=== PATIENT | female | born 1980 | race African-American/Black ===

== ENCOUNTER 2020-11-23 05:18 | Inpatient (IN) | payer OTHER ==
[~2020-11-23] VITALS: Ht 170.2 cm; Wt 128.2 kg
[2020-11-23 04:30] VITALS: BP 119/93
[2020-11-23] MEDS ORDERED: ONDANSETRON PF 4 MG/2 ML VIAL. IVP PRN (06:00)
[2020-11-23] MEDS ORDERED: HEPARIN for IV BOLUS 10,000 UNIT/10 ML VIAL. IV PRN ×2 (06:00)
[2020-11-23] MEDS ORDERED: fentaNYL PF VIAL 100 MCG/2 ML VIAL IVP PRN (06:00)
[2020-11-23] MEDS ORDERED: ANTI-COAG MONITOR BY PHARMACY. MC PRN (06:15)
[2020-11-23] MEDS: HEPARIN 25,000UTS/250ML PREMIX 250 ML IV PRN ×2 (06:17→17:53)
[2020-11-23 06:54] VITALS: BP 134/68
[2020-11-23 11:00] VITALS: BP 122/99
--- NOTE | 2020-11-23 14:12 | CONS ---
DATE OF CONSULTATION: 11/23/2020 PULMONARY CONSULTATION ATTENDING PHYSICIAN: Dr. Grey REASON FOR CONSULTATION: Pulmonary embolism. HISTORY OF PRESENT ILLNESS: The patient is a 40-year-old morbidly obese female who has no significant pulmonary history. The patient states about 5 days ago, she started to have increasing shortness of breath. She works at [employer]. She is active on her feet. She does have obesity with a BMI of 42. The patient started to have some chest pressure as well. Her dyspnea got worse. As a result, she was seen in the hospital and a CT angiogram was performed. I reviewed the CT angiogram. She has extensive bilateral pulmonary embolism with sparing of the main pulmonary arteries. She has evidence of right ventricular strain as well. No significant pleural effusion or pulmonary infarction observed. The patient states she has been active at work. She is not on any control pills. She has no family history of thromboembolic disorder. The patient has no history of any miscarriages. This is the first time she has a thromboembolic episode. She said she has some problem with her knees, but denied any calf tenderness. PAST MEDICAL HISTORY: No significant tobacco history. No significant pulmonary history. PAST SURGICAL HISTORY: None recently. ALLERGIES: None. MEDICATIONS: Reviewed including heparin per protocol. REVIEW OF SYSTEMS: A 12-point system was obtained. Pertinent positives discussed in my present illness, otherwise, noncontributory. All systems that were negative were reviewed as well. FAMILY HISTORY: Noncontributory to lungs. No family history of thromboembolic disease. SOCIAL HISTORY: non smoker PHYSICAL EXAMINATION: VITAL SIGNS: Reviewed. Pulse ox 95% on room air. NECK: Supple. LUNGS: Clear. CARDIOVASCULAR: With a regular rate. ABDOMEN: Soft, obese. EXTREMITIES: With no pitting edema. LABORATORY DATA: Reviewed. Troponin 0.052. Other labs are pending. A CT angiogram was reviewed as discussed above. IMPRESSION: 1. Acute pulmonary embolism in a patient who has no obvious risk factors except obesity. She is otherwise active on her feet while working at [employer]. She has no family history of thromboembolic disease. She is not on any hormonal replacement therapy. She has no miscarriages. No history of any trauma. We will need venous Dopplers of lower extremities to rule out deep vein thrombosis. We will also need hypercoagulable panel. 2. Evidence of right ventricular strain. She is hemodynamically stable. We will monitor closely on heparin. 3. Underlying morbid obesity. Suspicion for obstructive sleep apnea. RECOMMENDATIONS: 1. Continue with heparin per protocol. 2. We will initiate Eliquis in next 24-48 hours. 3. Obtain venous Dopplers of lower extremities. 4. Obtain echocardiogram. 5. Hypercoagulable panel as an outpatient. 6. Minimum 3-6 months of anticoagulation. She needs to lose weight. The total duration of anticoagulation therapy depending on additional workup results. 7. Discussed with RN. We will follow along with you. 8. Consider sleep study as outpt. LAUREL DR: Fanny TID: [id number] FLAQUITA
--- NOTE | 2020-11-23 14:44 | NUR ---
SS following for discharge planning. SS reviewed pt chart and discussed with pt RN. Pt is from home with spouse and is currently on room air. Pt on Heparin drip. ECHO today. Hematology and Pulmonology consulted. SS will continue to follow for discharge planning.
--- NOTE | 2020-11-23 14:47 | HP ---
ADMIT DATE: 11/23/2020 HISTORY OF PRESENT ILLNESS: The patient is a 40-year-old female patient who presented to the emergency room with a complaint of chest pain and shortness of breath that began about 5 days ago and has continued to worsen since then. The patient stated that it became unbearable early this morning. She cannot walk more than five steps without shortness of breath and chest pain. She described chest pain as chest tightness on the right side of her chest that occasionally radiates to the right upper quadrant of her abdomen, does not radiate anywhere else. She has not taken anything for pain. She states that she is sitting or lying down with pillows behind her back is the best help to reduce the pain in her chest and shortness of breath. She has no pertinent medical history and does not follow with any primary care physician. She was never diagnosed with any medical problems, never had any surgeries for and she was evaluated in the emergency room with lab work and imaging studies. Her D-dimer was 4.68. She has also anemia, normochromic, normocytic and her chemistry was essentially unremarkable. She has also beta natriuretic peptide was high at 1225. First set of cardiac enzymes showed troponin to be slightly elevated at 0.063 and the patient underwent a CT angio of the chest, which basically showed extensive bilateral pulmonary emboli, right-sided heart chamber enlargement with mild flattening of the ventricular system suggesting right heart strain pattern. Lungs are clear, otherwise. The patient was transferred to [facility] and was started on heparin drip. PAST MEDICAL HISTORY: Unremarkable. PAST SURGICAL HISTORY: Unremarkable. MEDICATIONS: She has no medication prescription. She takes ibuprofen occasionally. ALLERGIES: She has no known drug allergies. FAMILY HISTORY: She has 3 brothers and 1 sister, all older. None of them was diagnosed with any clot, although she said that she does not really keep in touch with them. Her parents are both alive in their 60s. Her mother had a CVA and hypertension. SOCIAL HISTORY: She is , has two sons and three daughters. She is an ex-smoker. She used to smoke when she was a teenager, but she has not smoked for a long time. She drinks alcohol occasionally. Does not use any drugs. She works at [employer]. Mostly, on her feet and walking around. She denied any recent travel for long distances or flying for a long time. PHYSICAL EXAMINATION: GENERAL: On arrival to the emergency room, the patient looked well and was clearly in no apparent respiratory distress. VITAL SIGNS: Her heart rate was 121, blood pressure was 153/104, temperature was 98.2, respiratory rate was 18 and oxygen saturation was 95% on room air. HEAD, EYES, EARS, NOSE AND THROAT: Normocephalic, atraumatic. NECK: Supple. HEART: Showed normal first and second heart sounds, no gallop, rub or murmur. CHEST: Clear to auscultation, no crepitation or rhonchi. ABDOMEN: Distended, soft, nontender. NEUROLOGIC: She was awake, alert, responding appropriately. All cranial nerves intact. She moves extremities without difficulty. LABORATORY DATA: Her lab work showed serum sodium 138, potassium 3.8, chloride 103, bicarbonate 24, anion gap of 11, BUN 6, creatinine 0.9. Estimated GFR was 84 mL per minute. Her glucose 138, calcium was 8.8, magnesium was 1.7. Total bilirubin, AST, ALT, alkaline phosphatase were normal. Her first set of cardiac enzymes showed troponin to be 0.063. Beta natriuretic peptide was 1225. Total protein 7.6, albumin 3, lipase was 64. White cell count was 8100, hemoglobin 12, hematocrit 36, MCV 89 and platelet count of 331,000 with normal manual differential. Urinalysis essentially unremarkable. Her test was negative. A CT angio of the chest showed that the patient has extensive bilateral pulmonary emboli, it is almost occlusive described as subtotally occlusive filling defects at the distal right main pulmonary artery filling the upper lobe, middle lobe and basilar segmental branches. There is also subtotally occlusive filling defects in the main left lower lobe and lingular branches with partially occlusive filling defects in the left upper lobe segmental branches. The heart size is mildly enlarged. There is mild displacement of the ventricular septum with right-sided chamber enlargement, suggesting strain pattern. No pericardial effusion. No mediastinal or hilar or axillary lymphadenopathy. Thyroid gland was unremarkable. Total airways are patent. Mild diffuse bronchial wall thickening. No consolidation, pleural effusion, or pneumothorax. Limited images of the upper abdomen are unremarkable with no acute bony abnormality and multilevel spondylosis. The patient was given IV fluid, a liter of normal saline and Lovenox as well as fentanyl and was transferred to [facility] to consult the funeral home location manager, perhaps a manager entry also. [facility] DR: Prudencio TID: [id number]
--- NOTE | 2020-11-23 15:02 | PDOC2 ---
CONSULT Date of Consult Date of Consult DATE: 11/23/20 TIME: 14:58 Reason for Consult Reason for Consult: Pulmonary embolus Identification/Chief Complaint Chief Complaint Chest pain Source Source: Chart review, Patient History of Present Illness Reason for Visit: Patient is a 40-year-old woman who was transferred from [facility] with bilateral extensive PE with right heart strain. Presented with 5 days history of increasing chest tightness and chest pain. Questioning her she did not have any long travels or history of injuries. She did have some bilateral leg cramps and pain for about a month and a half. No personal or family history of blood clots. Mother developed breast cancer at unknown age. The patient does not smoke. She drinks alcohol occasionally and does not use illicit drugs. She has been started on IV heparin. Current Medications Current Medications Current Medications Heparin Sodium/ Dextrose 250 ml @ 0 mls/hr CONT PRN IV PER PROTOCOL Last administered on 11/23/20at 06:17; Start 11/23/20 at 06:00 Heparin Sodium (Porcine) (Heparin Sodium) 3,700 unit PRN Q6HRS PRN IV FOR UFH LEVEL LESS THAN 0.2; Start 11/23/20 at 06:00 Heparin Sodium (Porcine) (Heparin Sodium) 1,850 unit PRN Q6HRS PRN IV FOR UFH LEVEL 0.2 - 0.29; Start 11/23/20 at 06:00 Ondansetron HCl (Zofran) 4 mg PRN Q6HRS PRN IVP NAUSEA/VOMITING 1ST CHOICE; Start 11/23/20 at 06:00 Fentanyl Citrate (Fentanyl 2ml Vial) 50 mcg PRN Q2HR PRN IVP SEVERE PAIN 7-10; Start 11/23/20 at 06:00 Info (Anti-Coagulation Monitoring By Pharmacy) 1 each PRN DAILY PRN MC SEE COMMENTS Last administered on 11/23/20at 06:11; Start 11/23/20 at 06:15 Active Scripts Active Reported No Known Medications Prior To Admisstion (Info) Each 1 Each MC 1X Allergies Allergies: Coded Allergies: No Known Drug Allergies (Unverified , 11/23/20) ROS Respiratory: YES: Pleuritic Pain Vitals VITALS Vital Signs Date Time Temp Pulse Resp B/P (MAP) Pulse Ox O2 Delivery O2 Flow Rate FiO2 11/23/20 11:00 98.1 104 29 122/99 (107) 100 Room Air 98.1 Labs Labs Laboratory Tests Test 11/23/20 07:45 11/23/20 10:15 11/23/20 12:05 Troponin I Quantitative 0.052 ng/mL (0.000-0.055) 0.040 ng/mL (0.000-0.055) Heparin Anti-Xa Act, Unfractionated 0.51 IU/mL (0.30-0.70) Laboratory Tests Test 11/23/20 07:45 11/23/20 10:15 11/23/20 12:05 Troponin I Quantitative 0.052 ng/mL (0.000-0.055) 0.040 ng/mL (0.000-0.055) Heparin Anti-Xa Act, Unfractionated 0.51 IU/mL (0.30-0.70) Assessment/Plan Assessment/Plan 1-bilateral unprovoked pulmonary emboli with right heart strain Plan: 1- Continue IV heparin 2-we will check lupus anticoagulant and antiphospholipid antibody panel 3-CT abdomen pelvis to look for occult malignancy 4-connective tissue panel including JOSEPH rheumatoid factor In the absence of malignancy, and if the antiphospholipid panel is negative, the patient can be stabilized and discharged on a DOAC for at least 6 month. More comprehensive thrombophilia work-up to be carried after 6 months of full dose anticoagulation. If the antiphospholipid panel is positive, and although it needs to be confirmed 12 weeks later, warfarin will be the best choice to send the patient home on LYNDA JONES MD Nov 23, 2020 15:02
[2020-11-23 15:33] VITALS: BP 131/79
--- NOTE | 2020-11-23 15:48 | RAD ---
US BILATERAL LOWEREXTREMITY VENOUS DOPPLER History: Reason: PE, LEG PAIN / Spl. Instructions: / History: Comparison: None. Discussion: Multiple longitudinal and transverse high resolution real-time images of the venous system of [facility] lower extremity were obtained with color and Doppler sampling. The common femoral, superficial fem oral, popliteal and proximal calf veins are all patent and demonstrate normal flow and compressibilit y. Normal respiratory phasicity and augmentation is present. Impression: 1. No evidence of deep vein thrombosis. Electronically signed by: Marcio Ryan DO (11/23/2020 3:46 PM) [id number]
[2020-11-23 19:02] VITALS: BP 116/75
[2020-11-23 22:10] VITALS: BP 109/72
[2020-11-24 03:02] VITALS: BP 112/74
[2020-11-24 06:23] VITALS: BP 118/83
[2020-11-24] MEDS: HEPARIN 25,000UTS/250ML PREMIX 250 ML IV PRN (06:50)
[2020-11-24] MEDS ORDERED: IOHEXOL 300 MG/ML 100ML VIAL. IV ONE (08:00)
[2020-11-24] MEDS ORDERED: IOHEXOL 240 MG/ML 50ML VIAL. PO ONE (08:00)
[2020-11-24] MEDS ORDERED: CONTRAST GIVEN. MC PRN (08:00)
--- NOTE | 2020-11-24 10:26 | RAD ---
CT ABDOMEN+PELVIS W History: Unprovoked pulmonary embolism, evaluate for malignancy. Comparison: CT chest 11/23/2020. Technique: CT of the abdomen and pelvis with oral and intravenous contrast. Findings: Lung bases: Small right pleural effusion. No airspace consolidation General abdomen: No ascites. No free air. Liver : Normal in size and attenuation. No masses seen. Gallbladder/Biliary Tree: Abnormal appearance of the gallbladder, likely gallbladder wall thickening and vicarious excretion of contrast into the lumen. No intrahepatic or extrahepatic biliary ductal di latation. Pancreas: Normal. Spleen: Normal in size and attenuation. Adrenal glands: Normal. Kidneys: No hydronephrosis or hydroureter. 1.9 cm anterior interpolar right kidney hypodensity measur ing 22 Hounsfield units, greater than that of the cyst. Gastrointestinal: Small hiatal hernia. Unremarkable small bowel. Normal appendix. Normal colon. Lymph nodes: No lymphadenopathy. Vessels: Unremarkable. Pelvic organs: Unremarkable reproductive organs. No pelvic masses. The bladder is unremarkable. Soft tissues: Unremarkable. Bones: No acute or aggressive lesions. Degenerative disc disease at L4-L5 . Impression: 1. Right renal hypodensity measuring 1.9 cm diameter, greater than that of simple fluid. This most l ikely represents a minimally complicated cyst containing proteinaceous/hemorrhagic material, however cannot exclude low density renal mass. Recommend right upper quadrant ultrasound for further evaluati on. 2. Irregular appearance of the gallbladder, likely represents gallbladder wall thickening with contr ast in the lumen. Further evaluation can be performed concurrently with renal lesion during right upp er quadrant ultrasound. 3. No abdominopelvic adenopathy or other evidence of malignancy. ------ Exposure: One or more of the following individualized dose reduction techniques were utilized for thi s examination: 1. Automated exposure control 2. Adjustment of the mA and/or kV according to patient size 3. Use of iterative reconstruction technique. Electronically signed by: Jim Aaron MD (11/24/2020 10:24 AM) [facility]
[2020-11-24 10:58] VITALS: BP 139/85
--- NOTE | 2020-11-24 11:42 | PDOC ---
PULMONARY PROGRESS NOTES DATE: 11/24/20 TIME: 11:35 Subjective remains on room air no overnight issues Vitals Vital Signs Date Time Temp Pulse Resp B/P (MAP) Pulse Ox O2 Delivery O2 Flow Rate FiO2 11/24/20 10:58 98.1 109 20 139/85 (103) 98 Room Air 98.1 ROS: No Nausea, No Chest Pain, No Abdominal Pain, No Increase Cough General: Alert, Oriented X4 Lungs: Clear Cardiovascular: S1, S2 Abdomen: Soft, Non-tender Extremities: No Edema Skin: Warm, Dry Labs Laboratory Tests Test 11/23/20 07:45 11/23/20 10:15 11/23/20 12:05 11/23/20 18:30 Troponin I Quantitative 0.052 ng/mL (0.000-0.055) 0.040 ng/mL (0.000-0.055) Heparin Anti-Xa Act, Unfractionated 0.51 IU/mL (0.30-0.70) 0.58 IU/mL (0.30-0.70) Test 11/24/20 05:00 Heparin Anti-Xa Act, Unfractionated 0.62 IU/mL (0.30-0.70) Laboratory Tests Test 11/23/20 12:05 11/23/20 18:30 11/24/20 05:00 Heparin Anti-Xa Act, Unfractionated 0.51 IU/mL (0.30-0.70) 0.58 IU/mL (0.30-0.70) 0.62 IU/mL (0.30-0.70) Medications Active Scripts Medications Dose Route/Sig Max Daily Dose Days Date Category No Known Medications Prior To Admisstion (Info) Each 1 Each 1X 11/23/20 Reported Impression . IMPRESSION: 1. Acute pulmonary embolism in a patient who has no obvious risk factors except obesity. She is otherwise active on her feet while working at [employer]. She has no family history of thromboembolic disease. She is not on any hormonal replacement therapy. She has no miscarriages. No history of any trauma. We will need venous Dopplers of lower extremities to rule out deep vein thrombosis. We will also need hypercoagulable panel. 2. Evidence of right ventricular strain. She is hemodynamically stable. We will monitor closely on heparin. 3. Underlying morbid obesity. Suspicion for obstructive sleep apnea. Plan . RECOMMENDATIONS Remains on room air D/C heparin gtt start eliquis Minimum 3-6 months of anticoagulation. Obtain venous Dopplers of lower extremities-- negative Obtain echocardiogram--pending Hypercoagulable panel as an outpatient. Follow HEM/ONC recs sleep study as outpt. CT ABD was neg DVT/GI PPX Discussed with RN will need follow up in office in 6 weeks for follow up CT ISABELL FOFANA MD Nov 24, 2020 11:42
[2020-11-24] MEDS: APIXABAN 5 MG TABLET. PO SCH ×2 (11:44→20:26)
[2020-11-24 13:17] LABS: RHEUMATOID FACTOR <10.0 IU/mL (0.0-13.9)
--- NOTE | 2020-11-24 14:04 | NUR ---
SS following up with discharge planning. SS reviewed pt chart and discussed with pt RN. Pt is currently on room air. Pulmonology following. ECHO today. Pt now on Eliquis. Discharge plan is to home when medically ready. SS will continue to follow for discharge planning.
[2020-11-24 15:33] VITALS: BP 113/76
[2020-11-24] MEDS ORDERED: ANTI-COAG MONITOR BY PHARMACY. MC PRN (16:00)
[2020-11-24 19:25] VITALS: BP 119/82
[2020-11-24 22:50] VITALS: BP 112/67
--- NOTE | 2020-11-24 23:18 | PN ---
DATE: 11/24/2020 SUBJECTIVE: The patient is resting, slightly propped up in bed, in no apparent respiratory distress. She is awake, alert. On questioning her, she denies any complaint and stated that she had an uneventful night. In particular, denied any chest pain, cough, phlegm or hemoptysis. She was seen in consultation by Dr. Kan and the tool filer hand. PHYSICAL EXAMINATION: GENERAL: When I examined her this morning, she looked well and was clearly in no apparent respiratory distress. No pallor, jaundice, cyanosis, or thyromegaly. No jugular venous distention. No lower limb edema. VITAL SIGNS: Her heart rate was 101, blood pressure is 118/83, temperature was 97.9, respiratory rate was 20 and oxygen saturation was 95% on room air. HEAD, EYES, EARS, NOSE AND THROAT: Normocephalic, atraumatic. NECK: Supple. HEART: Normal first and second heart sounds, no gallop, rub or murmur. LUNGS: Clear to auscultation. No crepitation or rhonchi. ABDOMEN: Distended, soft and nontender. No guarding or rigidity. No organomegaly. All hernial orifice intact. Bowel sounds normal. NEUROLOGIC: She is grossly intact. DIAGNOSTIC DATA: Her venous Doppler ultrasound of both lower extremities showed no evidence of deep vein thrombosis. She has had a CT scan of the abdomen and pelvis, results of which still pending. She was seen by the tool filer hand who will basically ordered few lab work including lupus anticoagulant, antiphospholipid panel as well as CT scan of the abdomen and pelvis for occult malignancy and connective tissue panel including antinuclear antibody and rheumatoid factor. PLAN: To switch her to Eliquis today and hopefully discharge her home tomorrow. TERESA GREENE: Prudencio TID: [id number]
[2020-11-25 03:05] VITALS: BP 113/78
[2020-11-25 07:00] VITALS: BP 153/99
[2020-11-25] MEDS: APIXABAN 5 MG TABLET. PO SCH (07:32)
[2020-11-25] MEDS ORDERED: APIX5TAB PO (09:04)
--- NOTE | 2020-11-25 09:39 | CARD ---
MR#: [id number] Date of Study: 11/24/2020 Ordering Physician: ISABELL FOFANA, Referring Physician: ISABELL FOFANA, Tech: Neha Antonio, [facility] APPROVED REPORT EXAM: Two-dimensional and M-mode echocardiogram with Doppler and color Doppler. Other Information Quality : AverageHR: 102bpm INDICATION Pulmonary Embolism RISK FACTORS Smoking 2D DIMENSIONS RVDd3.3 (2.9-3.5cm)Left Atrium(2D)2.8 (1.6-4.0cm) IVSd1.2 (0.7-1.1cm)Aortic Root(2D)3.1 (2.0-3.7cm) LVDd4.9 (3.9-5.9cm)LVOT Diameter2.0 (1.8-2.4cm) PWd1.1 (0.7-1.1cm)LVDs3.1 (2.5-4.0cm) FS (%) 36.9 %SV74.7 ml LVEF(%)66.6 (>50%) Aortic Valve AoV Peak Oscar.116.9cm/sAoV VTI18.7cm AO Peak GR.5.5mmHgLVOT VTI 18.20cm AO Mean GR.3mmHg Mitral Valve MV E Cmrzzohf32.5cm/sMV DECEL [id number] MV A Omyvbvmq50.2cm/sE/A Ratio0.7 TDI Lateral E' P. V11.97cm/sMedial E' P. V8.56cm/s E/Lateral E'3.4E/Medial E'4.7 Tricuspid Valve TR P. Renfilyv855pf/sRAP [id number] TR Peak Gr.99kwSsJARX94fyEb Pulmonary Vein S1 Zznajpsi90.0cm/sS2 Pxyciymh98.79cm/s D2 Kqjrkesx50.8cm/sPVa [id number] LEFT VENTRICLE The left ventricle is normal size. There is mild concentric left ventricular hypertrophy. The left ve ntricular systolic function is normal. The Ejection Fraction is 55-60%. There is normal LV segmental wall motion. Transmitral Doppler flow pattern is Grade I-abnormal relaxation pattern. RIGHT VENTRICLE The right ventricle is mildly dilated. The right ventricle is mildly hypertrophied. The right ventric ular systolic function is normal. ATRIA The left atrium size is normal. The right atrium is mildly dilated. Interatrial septum bowed toward t he left, consistent with elevated right atrial pressures. AORTIC VALVE The aortic valve is normal in structure and function. Doppler and Color Flow revealed trace aortic re gurgitation. There is no significant aortic valvular stenosis. Calculated aortic valve area is 2.97 c m2 with maximum pressure gradient of 6 mmHg and mean pressure gradient of 4 mmHg. MITRAL VALVE The mitral valve is normal in structure and function. There is no evidence of mitral valve prolapse. There is no mitral valve stenosis. Doppler and Color-flow revealed trace mitral regurgitation. TRICUSPID VALVE The tricuspid valve is normal in structure and function. Doppler and Color Flow revealed trace tricus pid regurgitation with an estimated PAP of 36 mmHg. There is no tricuspid valve stenosis. PULMONIC VALVE The pulmonic valve is not well visualized. Doppler and Color Flow revealed trace pulmonic valvular re gurgitation. GREAT VESSELS The aortic root is normal in size. The IVC is dilated and collapses <50% with inspiration. PERICARDIAL EFFUSION There is no evidence of significant pericardial effusion. Critical Notification Critical Value: No <Conclusion> The left ventricular systolic function is normal. The Ejection Fraction is 55-60%. There is normal LV segmental wall motion. Transmitral Doppler flow pattern is Grade I-abnormal relaxation pattern. The right ventricle is mildly dilated. Interatrial septum bowed toward the left, consistent with elevated right atrial pressures. Trace mitral regurgitation. Trace tricuspid regurgitation with an estimated PAP of 36 mmHg. There is no evidence of significant pericardial effusion. Signed by : Delroy Orellana, Electronically Approved : 11/25/2020 09:39:01
--- NOTE | 2020-11-25 12:15 | NUR ---
Patient discharged home this shift with self care. All personal belongings taken home with patient. Patient education provided on medication and follow ups. Patient was given a one month free trail card for her eliquis along with paperwork for coupons after the first month. Patient left with SO in and walked off unit by JUSTIN.
[2020-11-25 20:08] LABS: ANA INTERP Negative (.)
[2020-11-27 11:04] LABS: CARDIOLIPIN ANTIBODIES SEE SEPARATE REPORT; LUPUS ANTICOAGULANT SEE SEPARATE REPORT
[2020-12-01] MEDS ORDERED: APIXABAN 5 MG TABLET. PO SCH (09:00)
--- NOTE | 2020-12-26 11:41 | DS ---
DATE OF DISCHARGE: 11/25/2020 HOSPITAL COURSE: The patient is a 40-year-old -[place] female patient who presented to the emergency room with a complaint of chest pain and shortness of breath that began about 5 days ago. Prior to admission, has continued to worsen ____ the patient stated that it became unbearable. Early in the morning of admission day, she cannot walk more than few steps without shortness of breath and chest pain. She described chest pain as chest tightness on the right side and occasionally radiates to the right upper quadrant of her abdomen. She has not taken anything for pain. She stated that she is sitting or lying down with pillows behind her back is the best help to reduce the pain. In any case, she was evaluated in the Emergency Room and her lab work showed that her D-dimer was high at 4.68. She also has anemia that is normochromic, normocytic and her chemistry was essentially unremarkable. She also had a beta natriuretic peptide, which was high. She underwent a CT angio of the chest, which basically showed extensive bilateral pulmonary emboli, with the right side heart chamber enlargement with mild flattening of the ventricular septum suggesting right heart strain pattern. Her lungs; however, were clear. The patient was transferred to [facility] and was started on heparin drip. She was evaluated by the radiology receptionist-oncologist, who basically recommended to do a CT scan of the abdomen and pelvis to look for any occult malignancy and also sent blood for lupus anticoagulant, antiphospholipid antibodies and her heparin was switched to Eliquis 10 mg twice a day. She had, had an echocardiogram, which basically showed that her left ventricular systolic function is normal, ejection fraction is 55-60%. There is normal left ventricular segmental wall motion. Transmitral Doppler flow pattern is grade I, abnormal relaxation pattern. The right ventricle is mildly dilated. Her interatrial septum bowed towards the left, consistent with elevated right atrial pressure. She has trace mitral regurgitation, trace tricuspid regurgitation and an estimated pulmonary artery pressure of 36 mmHg. There is no evidence of significant pericardial effusion. As the patient stabilized, the decision was made to discharge her home to continue the Eliquis and to follow up with the marketing analytics manager in 6 weeks' time and also her radiology receptionist in their clinic in [place]. PHYSICAL EXAMINATION AT DISCHARGE: GENERAL: On the day of discharge, she looked well and was clearly in no apparent respiratory distress. No pallor, jaundice, cyanosis or thyromegaly. No jugular venous distention. No limb edema. VITAL SIGNS: Her heart rate was 109, blood pressure is 153/99, temperature was 97.9, respiratory rate 20, and oxygen saturation was 95% on room air. HEAD, EYES, EARS, NOSE AND THROAT: Normocephalic, atraumatic. NECK: Supple. HEART: Showed normal first and second heart sounds, no gallop, murmur. CHEST: Clear to auscultation, no crepitation or rhonchi. ABDOMEN: Distended, soft, nontender. NEUROLOGIC: She was grossly intact. LABORATORY DATA: On the day of discharge were unremarkable. DISCHARGE MEDICATIONS: She was discharged home to continue on Eliquis 10 mg twice a day for seven days, then 5 mg twice a day. FINAL DISCHARGE DIAGNOSES: Bilateral pulmonary emboli with right heart strain, morbid obesity and hypertension. Her body mass index was 44.3 kg/sq m. LAURA/POLO DR: Prudencio TID: [id number]
== END 2020-11-25 12:19 | disposition home or self-care (01) | DRG 176 ==
LOC: CVICU 05:18
PROVIDERS: ADMIT Internal Medicine; ATTEND Internal Medicine
DX: I26.99 Other pulmonary embolism without acute cor pulmonale (principal); Z68.41 Body mass index [BMI] 40.0-44.9, adult; E66.01 Morbid (severe) obesity due to excess calories; Z80.3 Family history of malignant neoplasm of breast; Z82.3 Family history of stroke; Z82.49 Family history of ischemic heart disease and other diseases of the circulatory system; Z87.891 Personal history of nicotine dependence
CPT/HCPCS: 36415; 74177; 84484; 85520; 85610; 86038; 86146; 86147; 86431; 93306; 93970; J1644; Q9966; Q9967; G0378